=== PATIENT | male | born 1985 | race Caucasian/White ===

== ENCOUNTER 2021-03-03 05:43 | Inpatient (IN) | payer SELFPAY ==
[~2021-03-03] VITALS: Ht 177.8 cm; Wt 88.4 kg
[2021-03-03 05:45] VITALS: BP 129/76
[2021-03-03] MEDS ORDERED: MORPHINE SULFATE 4 MG/ML INJ. IV PRN (06:45)
[2021-03-03] MEDS ORDERED: ONDANSETRON PF 4 MG/2 ML VIAL. IVP PRN ×2 (06:45→07:15)
--- NOTE | 2021-03-03 06:57 | PDOC1 ---
History and Physical Date of Admission Date of Admission DATE: 03/03/21 TIME: 06:57 Identification/Chief Complaint Chief Complaint Inguinal hernia Source Source: Chart review, Patient History of Present Illness History of Present Illness Patient is a 35-year-old male with past medical history inguinal hernia, who presents as transfer from [facility] due to worsening right lower quadrant abdominal pain since yesterday. He reports associated scrotal swelling and nausea. He was previously followed by general surgery due to his history of inguinal hernia and was told that this could not be electively repaired due to lack of insurance. Upon arrival at [facility] physical exam findings are consistent with incarcerated right inguinal hernia. CT abdomen/pelvis showed moderate right-sided inguinal hernia containing loops of small bowel with dilated small bowel loops proximal to the likely incarcerated hernia. He received IV pain management and antiemetics. He was transferred to [facility] for general surgery consult and higher level of care. Past Medical History Past Medical History Right inguinal hernia, scoliosis, cataracts, alcohol abuse Past Surgical History Past Surgical History Right eye surgery Family History Family History Reviewed with patient but denies significant family history Social History Smoke: <1 pack per day (Chewing tobacco) ALCOHOL: heavy Drugs: Cocaine, Marijuana, Crystal meth Current Medications Current Medications Current Medications Morphine Sulfate (Morphine Sulfate) 2 mg PRN Q2HR PRN IV MODERATE PAIN 4-6; Start 03/03/21 at 06:45 Morphine Sulfate (Morphine Sulfate) 4 mg PRN Q2HR PRN IV SEVERE PAIN 7-10; Start 03/03/21 at 06:45 Ondansetron HCl (Zofran) 4 mg PRN Q6HRS PRN IVP NAUSEA/VOMITING 1ST CHOICE; Start 03/03/21 at 06:45 Sodium Chloride 1,000 ml @ 75 mls/hr [id number] IV ; Start 03/03/21 at 07:00 Allergies Allergies: Coded Allergies: No Known Drug Allergies (Unverified , 03/03/21) ROS Review of System GENERAL: No history of weight change, weakness or fevers. SKIN: No bruising, hair changes or rashes. EYES: No blurred, double or loss of vision. NOSE AND THROAT: No history of nosebleeds, hoarseness or sore throat. HEART: Denies chest pain, denies palpitations. LUNGS: Denies cough, hemoptysis, wheezing or shortness of breath. GASTROINTESTINAL: Lower abdominal pain, nausea. Denies diarrhea. GENITOURINARY: Scrotal pain and swelling. Denies dysuria, frequency, urgency, hematuria. NEUROLOGIC: Denies history of numbness, tingling, tremor or weakness. PSYCHIATRIC: Denies anxiety, denies depression. ENDOCRINE: No history of heat or cold intolerance, polyuria or polydipsia. EXTREMITIES: Denies muscle weakness, joint pain, pain on walking or stiffness. Physical Exam Physical Exam General: Alert, Oriented X3, Cooperative, moderate distress HEENT: PERRLA, EOMI Lungs: Clear to auscultation, Normal air movement Heart: RRR, no murmurs Cardiovascular: S1, S2 Abdomen: Normal bowel sounds, Soft, No tenderness Genitourinary: Enlarged and tender scrotum containing loops of small bowel, not reducible. Extremities: No clubbing, No cyanosis Skin: No rashes, No significant lesion Neuro: Normal speech, Normal tone, Sensation intact Psych/Mental Status: Mental status NL, Mood NL Vitals Vitals Vital Signs Date Time Temp Pulse Resp B/P (MAP) Pulse Ox O2 Delivery O2 Flow Rate FiO2 03/03/21 05:45 98.5 62 18 129/76 (93 100 Room Air 98.[address] Images [address] [address] IMAGING REPORT Signed PATIENT: YOUSUF STEVENS BACCOUNT: [id number] : 1985 LOCATION: ER AGE: 35 SEX: M EXAM STATUS: PRE ER ORD. PHYSICIAN: LETA MCCALLUM DO REASON: Rt ingu hernia, eval for incarceration/strangulation Omn 300 75cc PROCEDURE: CT ABD PELV W/ IV CONTRST ONLY Examination: CT of the abdomen pelvis with IV contrast HISTORY: History of inguinal hernia COMPARISON: 02/08/2021 TECHNIQUE: Axial CT images of the abdomen pelvis were performed with IV contrast. Coronal and sagittal reformats are performed. Exposure: One or more of the following individualized dose reduction techniques were utilized for this examination: 1. Automated exposure control 2. Adjustment of the mA and/or kV according to patient size 3. Use of iterative reconstruction technique. FINDINGS: The bibasilar lungs are clear. No evidence of free air identified in the abdomen. The liver, spleen, adrenals, pancreas grossly appears unremarkable. The gallbladder is mildly distended. Moderate fluid distended stomach with multiple dilated small bowel loops identified in the abdomen proximal to the moderate size inguinal hernia containing loops of small bowel within likely incarcerated hernia..There is fat stranding identified about the dilated small bowel loops. Feces and gas noted in the colon. IMPRESSION: 1. Moderate right-sided inguinal hernia containing loops of small bowel with dilated small bowel loops proximal to the hernia likely incarcerated hernia. VTE Prophylaxis Ordered VTE Prophylaxis Devices: No VTE Pharmacological Prophylaxi: Yes Assessment/Plan Assessment/Plan Incarcerated right inguinal hernia History of drug abuse History alcohol abuse Plan: Consultation for general surgery We will keep patient NPO for surgical intervention likely this morning IV pain medication and antiemetics EtOH withdrawal protocol FEN - NPO, then regular diet following surgery PPX - Heparin FULL CODE Dispo - inpatient for above Justifications for Admission Other Justification AMBER STRICKLAND MD Mar 03, 2021 06:57
[2021-03-03 07:00] VITALS: BP 133/90
[2021-03-03] MEDS ORDERED: ZOLPIDEM 5 MG TABLET. PO PRN (07:15)
[2021-03-03] MEDS ORDERED: cloNIDine HCL 0.1 MG TABLET PO PRN (07:15)
[2021-03-03] MEDS ORDERED: HALOPERIDOL LACTATE 5 MG/ML VIAL. IVP PRN (07:15)
[2021-03-03] MEDS ORDERED: MAGNESIUM HYDROXIDE 2,400 MG/30 ML ORAL.SUSP. PO PRN (07:15)
[2021-03-03] MEDS ORDERED: ACETAMINOPHEN 325 MG TABLET. PO PRN (07:15)
[2021-03-03] MEDS ORDERED: diphenhydrAMINE 50 MG/ML VIAL IVP PRN (07:15)
[2021-03-03] MEDS ORDERED: hydrALAZINE 20 MG/ML VIAL. IVP PRN (07:15)
[2021-03-03] MEDS ORDERED: CALCIUM CARBONATE 500 MG TAB.CHEW PO PRN (07:15)
[2021-03-03] MEDS ORDERED: MAG HYDROX/ALUMINUM HYD/SIMETH 30 ML ORAL.SUSP PO PRN (07:15)
[2021-03-03 08:20] LABS: BASO % 0 % (0-3); EOS % 0 % (0-3); HEMATOCRIT 46.7 % (39.0-53.0); LYMPH # 0.8 x10^3/uL (1.0-4.8); LYMPH % 7 % (24-48); MEAN CORPUSCULAR HEMOGLOBIN 30 pg (25-35); MEAN CORPUSCULAR HGB CONC 34 g/dL (31-37); MEAN CORPUSCULAR VOLUME 86 fL (79-100); MONO # 0.6 x10^3/uL (0.0-1.1); MONO % 5 % (0-9); NEUT # 10.2 x10^3/uL (1.8-7.7); NEUT % 88 % (31-73); PLATELET COUNT 352 x10^3/uL (140-400); RED BLOOD COUNT 5.42 x10^6/uL (4.30-5.70); WHITE BLOOD COUNT 11.6 x10^3/uL (4.0-11.0)
[2021-03-03 08:30] LABS: PROTHROMBIN TIME PATIENT 12.2 SEC (11.7-14.0)
[2021-03-03] MEDS: MORPHINE SULFATE 2 MG/ML INJ. IV PRN ×2 (08:30→17:18)
[2021-03-03] MEDS: IV NORMAL SALINE 1000ML BAG 1,000 ML IV SCH ×2 (08:30→20:41)
[2021-03-03 08:53] LABS: ALBUMIN 3.5 g/dL (3.4-5.0); CALCIUM 8.6 mg/dL (8.5-10.1); CREATININE 0.8 mg/dL (0.7-1.3); GFR 108.8; POTASSIUM 3.9 mmol/L (3.5-5.1); TOTAL BILIRUBIN 0.5 mg/dL (0.2-1.0); TOTAL PROTEIN 7.1 g/dL (6.4-8.2)
[2021-03-03] MEDS: MULTIVITAMIN with MINERAL TABLET. PO SCH (09:00)
[2021-03-03] MEDS: THIAMINE 100 MG TABLET. PO SCH (09:00)
[2021-03-03] MEDS: FOLIC ACID 1 MG TABLET. PO SCH (09:00)
[2021-03-03] MEDS ORDERED: LIDOCAINE 2% PF 5 ML VIAL. ONE ×2 (10:46→14:19)
[2021-03-03] MEDS ORDERED: PROPOFOL 10 MG/ML (20ML) VIAL. IV ONE ×2 (10:46→14:19)
[2021-03-03 11:00] VITALS: BP 126/81
--- NOTE | 2021-03-03 13:07 | PDOC2 ---
CONSULT Date of Consult Date of Consult DATE: 03/03/21 TIME: 13:04 Reason for Consult Reason for Consult: Incarcerated right inguinal hernia Referring Physician Referring Physician: Lakshmi Identification/Chief Complaint Chief Complaint Right groin pain Source Source: Patient History of Present Illness Reason for Visit: 35-year-old male with a known right inguinal hernia developed worsening pain over the weekend subsequently getting even worse went to the emergency department [place] a CT scan was performed which showed a incarcerated right inguinal hernia with small bowel with evidence of obstruction. Patient was sent to [facility] for surgical intervention. Patient was seen in his room feeling somewhat better although still having some pain no more nausea or vomiting Past Medical History Psych: Addictions Past Surgical History Past Surgical History: No pertinent history Family History Family History: No Significant Social History <1 pack per day (Chewing tobacco) ALCOHOL: heavy Drugs: Cocaine, Marijuana, Crystal meth Current Medications Current Medications Current Medications Morphine Sulfate (Morphine Sulfate) 2 mg PRN Q2HR PRN IV MODERATE PAIN 4-6 Last administered on 03/03/21at 08:30; Start 03/03/21 at 06:45 Morphine Sulfate (Morphine Sulfate) 4 mg PRN Q2HR PRN IV SEVERE PAIN 7-10; Start 03/03/21 at 06:45 Ondansetron HCl (Zofran) 4 mg PRN Q6HRS PRN IVP NAUSEA/VOMITING 1ST CHOICE; Start 03/03/21 at 06:45; Status Cancel Sodium Chloride 1,000 ml @ 75 mls/hr [id number] IV Last administered on 03/03/21at 08:30; Start 03/03/21 at 07:00 Multivitamins (Thera M Plus) 1 tab DAILY PO ; Start 03/03/21 at 09:00 Folic Acid (Folic Acid) 1 mg DAILY PO ; Start 03/03/21 at 09:00 Thiamine Mononitrate (Vitamin B-1) 100 mg DAILY PO ; Start 03/03/21 at 09:00 Lorazepam (Ativan Inj) 2 mg PRN Q1HR PRN IV For CIWA 8-14; Start 03/03/21 at 07:15 Lorazepam (Ativan Inj) 4 mg PRN Q1HR PRN IV For CIWA 15 or greater; Start 03/03/21 at 07:15 Haloperidol Lactate (Haldol Inj) 5 mg PRN Q4HRS PRN IVP Hallucinatns,Confusn,Delirium; Start 03/03/21 at 07:15 Diphenhydramine HCl (Benadryl) 25 mg PRN Q15MIN PRN IVP EPS symptoms 2'Haldol admin; Start 03/03/21 at 07:15 Clonidine HCl (Catapres) 0.1 mg PRN Q1HR PRN PO SBP > 180 or DBP > 100, MRX3; Start 03/03/21 at 07:15 Lorazepam (Ativan Inj) 2 mg PRN Q15MIN PRN IV SEE COMMENTS; Start 03/03/21 at 07:15; Status Cancel Lorazepam (Ativan Inj) 4 mg PRN Q15MIN PRN IV SEE COMMENTS; Start 03/03/21 at 07:15; Status Cancel Hydralazine HCl (Apresoline Inj) 10 mg PRN Q4HRS PRN IVP ELEVATED BP, SEE COMMENTS; Start 03/03/21 at 07:15 Ondansetron HCl (Zofran) 4 mg PRN Q6HRS PRN IVP NAUSEA/VOMITING; Start 03/03/21 at 07:15 Al Hydroxide/Mg Hydroxide (Mylanta Plus Xs) 30 ml PRN Q3HRS PRN PO HEARTBURN / GAS; Start 03/03/21 at 07:15 Calcium Carbonate/ Glycine (Tums) 500 mg PRN Q3HRS PRN PO UPSET STOMACH; Start 03/03/21 at 07:15 Zolpidem Tartrate (Ambien) 5 mg PRN QHS PRN PO INSOMNIA, MAY REPEAT IN 1HR; Start 03/03/21 at 07:15 Acetaminophen (Tylenol) 650 mg PRN Q6HRS PRN PO Headaches, Temp > 101.5F; Start 03/03/21 at 07:15 Magnesium Hydroxide (Milk Of Magnesia) 2,400 mg PRN Q12HR PRN PO CONSTIPATION; Start 03/03/21 at 07:15 Heparin Sodium (Porcine) (Heparin Sodium) 5,000 unit Q8HRS SQ ; Start 03/03/21 at 14:00 Propofol (Diprivan) 200 mg STK-MED ONCE IV ; Start 03/03/21 at 10:46; Stop 03/03/21 at 10:47; Status DC Lidocaine HCl (Lidocaine Pf 2% Vial) 5 ml STK-MED ONCE .ROUTE ; Start 03/03/21 at 10:46; Stop 03/03/21 at 10:47; Status DC Allergies Allergies: Coded Allergies: No Known Drug Allergies (Unverified , 03/03/21) ROS Gastrointestinal: Yes Nausea, Yes Vomiting, Yes Abdominal Pain Physical Exam General: Alert, Oriented X3, Cooperative, mild distress HEENT: Atraumatic, EOMI Lungs: Clear to auscultation, Normal air movement Heart: Regular rate, No murmurs Abdomen: Normal bowel sounds, Soft, Other (Examination right groin shows reduced hernia body rolling machine tender to palpation) Extremities: No edema Skin: No significant lesion Neuro: Normal speech Psych/Mental Status: Mental status NL Vitals VITALS Vital Signs Date Time Temp Pulse Resp B/P (MAP) Pulse Ox O2 Delivery O2 Flow Rate FiO2 03/03/21 11:00 98.1 75 18 126/81 (96) 97 Room Air 98.1 Labs Labs Laboratory Tests Test 03/03/21 08:05 White Blood Count 11.6 x10^3/uL (4.0-11.0) Red Blood Count 5.42 x10^6/uL (4.30-5.70) Hemoglobin 16.0 g/dL (13.0-17.5) Hematocrit 46.7 % (39.0-53.0) Mean Corpuscular Volume 86 fL (79-100) Mean Corpuscular Hemoglobin 30 pg (25-35) Mean Corpuscular Hemoglobin Concent 34 g/dL (31-37) Red Cell Distribution Width 14.0 % (11.5-14.5) Platelet Count 352 x10^3/uL (140-400) Neutrophils (%) (Auto) 88 % (31-73) Lymphocytes (%) (Auto) 7 % (24-48) Monocytes (%) (Auto) 5 % (0-9) Eosinophils (%) (Auto) 0 % (0-3) Basophils (%) (Auto) 0 % (0-3) Neutrophils # (Auto) 10.2 x10^3/uL (1.8-7.7) Lymphocytes # (Auto) 0.8 x10^3/uL (1.0-4.8) Monocytes # (Auto) 0.6 x10^3/uL (0.0-1.1) Eosinophils # (Auto) 0.0 x10^3/uL (0.0-0.7) Basophils # (Auto) 0.0 x10^3/uL (0.0-0.2) Prothrombin Time 12.2 SEC (11.7-14.0) Prothromb Time International Ratio 0.9 (0.8-1.1) Activated Partial Thromboplast Time 30 SEC (24-38) Sodium Level 137 mmol/L (136-145) Potassium Level 3.9 mmol/L (3.5-5.1) Chloride Level 103 mmol/L (98-107) Carbon Dioxide Level 27 mmol/L (21-32) Anion Gap 7 (6-14) Blood Urea Nitrogen 8 mg/dL (8-26) Creatinine 0.8 mg/dL (0.7-1.3) Estimated GFR (Cockcroft-Gault) 108.8 BUN/Creatinine Ratio 10 (6-20) Glucose Level 119 mg/dL (70-99) Calcium Level 8.6 mg/dL (8.5-10.1) Total Bilirubin 0.5 mg/dL (0.2-1.0) Aspartate Amino Transf (AST/SGOT) 15 U/L (15-37) Alanine Aminotransferase (ALT/SGPT) 16 U/L (16-63) Alkaline Phosphatase 83 U/L (46-116) Total Protein 7.1 g/dL (6.4-8.2) Albumin 3.5 g/dL (3.4-5.0) Albumin/Globulin Ratio 1.0 (1.0-1.7) Laboratory Tests Test 03/03/21 08:05 White Blood Count 11.6 x10^3/uL (4.0-11.0) Red Blood Count 5.42 x10^6/uL (4.30-5.70) Hemoglobin 16.0 g/dL (13.0-17.5) Hematocrit 46.7 % (39.0-53.0) Mean Corpuscular Volume 86 fL (79-100) Mean Corpuscular Hemoglobin 30 pg (25-35) Mean Corpuscular Hemoglobin Concent 34 g/dL (31-37) Red Cell Distribution Width 14.0 % (11.5-14.5) Platelet Count 352 x10^3/uL (140-400) Neutrophils (%) (Auto) 88 % (31-73) Lymphocytes (%) (Auto) 7 % (24-48) Monocytes (%) (Auto) 5 % (0-9) Eosinophils (%) (Auto) 0 % (0-3) Basophils (%) (Auto) 0 % (0-3) Neutrophils # (Auto) 10.2 x10^3/uL (1.8-7.7) Lymphocytes # (Auto) 0.8 x10^3/uL (1.0-4.8) Monocytes # (Auto) 0.6 x10^3/uL (0.0-1.1) Eosinophils # (Auto) 0.0 x10^3/uL (0.0-0.7) Basophils # (Auto) 0.0 x10^3/uL (0.0-0.2) Prothrombin Time 12.2 SEC (11.7-14.0) Prothromb Time International Ratio 0.9 (0.8-1.1) Activated Partial Thromboplast Time 30 SEC (24-38) Sodium Level 137 mmol/L (136-145) Potassium Level 3.9 mmol/L (3.5-5.1) Chloride Level 103 mmol/L (98-107) Carbon Dioxide Level 27 mmol/L (21-32) Anion Gap 7 (6-14) Blood Urea Nitrogen 8 mg/dL (8-26) Creatinine 0.8 mg/dL (0.7-1.3) Estimated GFR (Cockcroft-Gault) 108.8 BUN/Creatinine Ratio 10 (6-20) Glucose Level 119 mg/dL (70-99) Calcium Level 8.6 mg/dL (8.5-10.1) Total Bilirubin 0.5 mg/dL (0.2-1.0) Aspartate Amino Transf (AST/SGOT) 15 U/L (15-37) Alanine Aminotransferase (ALT/SGPT) 16 U/L (16-63) Alkaline Phosphatase 83 U/L (46-116) Total Protein 7.1 g/dL (6.4-8.2) Albumin 3.5 g/dL (3.4-5.0) Albumin/Globulin Ratio 1.0 (1.0-1.7) Assessment/Plan Assessment/Plan Right inguinal hernia currently reduced plan for hernia repair MANUEL CARBAJAL MD Mar 03, 2021 13:07
[2021-03-03] MEDS ORDERED: BUPIVACAINE-EPI 0.25%-1:200000 MPF 30 ML VIAL. ONE (13:55)
[2021-03-03] MEDS ORDERED: ONDANSETRON PF 4 MG/2 ML VIAL. ONE (14:19)
[2021-03-03] MEDS ORDERED: DEXAMETHASONE SOD PHOS 4 MG/ML VIAL ONE (14:19)
[2021-03-03] MEDS ORDERED: ROCURONIUM 50 MG/5 ML VIAL. ONE (14:20)
[2021-03-03] MEDS: HEPARIN for SUB-Q USE 5,000 UNIT/ML VIAL. SQ SCH ×2 (14:24→23:10)
[2021-03-03 15:00] VITALS: BP 116/77
[2021-03-03 19:00] VITALS: BP 142/89
[2021-03-03 23:00] VITALS: BP 143/84
[2021-03-04] VITALS (9 sets, daily range): BP systolic 110–139; BP diastolic 62–81
[2021-03-04 04:59] LABS: BASO % 1 % (0-3); EOS # 0.1 x10^3/uL (0.0-0.7); EOS % 2 % (0-3); HEMATOCRIT 39.3 % (39.0-53.0); HEMOGLOBIN 13.5 g/dL (13.0-17.5); LYMPH # 1.6 x10^3/uL (1.0-4.8); LYMPH % 27 % (24-48); MEAN CORPUSCULAR HEMOGLOBIN 30 pg (25-35); MEAN CORPUSCULAR HGB CONC 34 g/dL (31-37); MEAN CORPUSCULAR VOLUME 87 fL (79-100); MONO # 0.5 x10^3/uL (0.0-1.1); MONO % 9 % (0-9); NEUT # 3.5 x10^3/uL (1.8-7.7); NEUT % 61 % (31-73); PLATELET COUNT 289 x10^3/uL (140-400); RED BLOOD COUNT 4.51 x10^6/uL (4.30-5.70); RED CELL DISTRIBUTION WIDTH 13.4 % (11.5-14.5); WHITE BLOOD COUNT 5.8 x10^3/uL (4.0-11.0)
[2021-03-04 05:06] LABS: CALCIUM 8.1 mg/dL (8.5-10.1); CREATININE 0.8 mg/dL (0.7-1.3); GFR 108.8; POTASSIUM 3.3 mmol/L (3.5-5.1)
[2021-03-04] MEDS ORDERED: HYDROmorphone 2 MG/ML VIAL IVP PRN (06:00)
[2021-03-04] MEDS ORDERED: PROCHLORPERAZINE 10 MG/2 ML VIAL. IVP PRN (06:00)
[2021-03-04] MEDS ORDERED: fentaNYL PF VIAL 100 MCG/2 ML VIAL IVP PRN (06:00)
[2021-03-04] MEDS ORDERED: IV RINGERS,LACTATED 1000ML 1,000 ML IV SCH (06:00)
[2021-03-04] MEDS: HEPARIN for SUB-Q USE 5,000 UNIT/ML VIAL. SQ SCH ×3 (06:00→22:23)
[2021-03-04] MEDS: THIAMINE 100 MG TABLET. PO SCH (09:00)
[2021-03-04] MEDS: MULTIVITAMIN with MINERAL TABLET. PO SCH (09:00)
[2021-03-04] MEDS: FOLIC ACID 1 MG TABLET. PO SCH (09:00)
--- NOTE | 2021-03-04 11:45 | PDOC ---
[employer] PROGRESS NOTE Date of Service DOS: DATE: 03/04/21 TIME: 11:44 Chief Complaint Chief Complaint Incarcerated right inguinal hernia History of drug abuse History alcohol abuse Plan: Consultation for general surgery We will keep patient NPO for surgical intervention likely this morning IV pain medication and antiemetics EtOH withdrawal protocol FEN - NPO, then regular diet following surgery PPX - Heparin FULL CODE Dispo - inpatient for above History of Present Illness History of Present Illness Patient is a 35-year-old male with past medical history inguinal hernia, who presents as transfer from [facility] due to worsening right lower quadrant abdominal pain since yesterday. He reports associated scrotal swelling and nausea. He was previously followed by general surgery due to his history of inguinal hernia and was told that this could not be electively repaired due to lack of insurance. Upon arrival at [facility] physical exam findings are consistent with incarcerated right inguinal hernia. CT abdomen/pelvis showed moderate right-sided inguinal hernia containing loops of small bowel with dilated small bowel loops proximal to the likely incarcerated hernia. He received IV pain management and antiemetics. He was transferred to [facility] for general surgery consult and higher level of care. 03/04/2021: Patient seen and evaluated resting comfortably in bed. Pain well controlled at this time. Scheduled for surgery today. Vitals/I&O Vitals/I&O: Vital Signs Date Time Temp Pulse Resp B/P (MAP) Pulse Ox O2 Delivery O2 Flow Rate FiO2 03/04/21 08:28 Room Air 03/04/21 07:00 98.1 54 16 139/81 (100) 96 98.1 I & O 03/03/21 03/03/21 03/04/21 15:00 23:00 07:00 Intake Total 120 ml 0 ml Output Total 875 ml Balance -755 ml 0 ml Physical Exam General: Alert, Oriented X3, Cooperative, mild distress Heart: Regular rate, No murmurs Lungs: Clear Abdomen: Normal bowel sounds, Soft, Other (Examination right groin shows reduced hernia threading machine tender to palpation) Extremities: No edema Skin: No rashes, No significant lesion Labs Labs: Laboratory Tests Test 03/04/21 03:50 White Blood Count 5.8 x10^3/uL (4.0-11.0) Red Blood Count 4.51 x10^6/uL (4.30-5.70) Hemoglobin 13.5 g/dL (13.0-17.5) Hematocrit 39.3 % (39.0-53.0) Mean Corpuscular Volume 87 fL (79-100) Mean Corpuscular Hemoglobin 30 pg (25-35) Mean Corpuscular Hemoglobin Concent 34 g/dL (31-37) Red Cell Distribution Width 13.4 % (11.5-14.5) Platelet Count 289 x10^3/uL (140-400) Neutrophils (%) (Auto) 61 % (31-73) Lymphocytes (%) (Auto) 27 % (24-48) Monocytes (%) (Auto) 9 % (0-9) Eosinophils (%) (Auto) 2 % (0-3) Basophils (%) (Auto) 1 % (0-3) Neutrophils # (Auto) 3.5 x10^3/uL (1.8-7.7) Lymphocytes # (Auto) 1.6 x10^3/uL (1.0-4.8) Monocytes # (Auto) 0.5 x10^3/uL (0.0-1.1) Eosinophils # (Auto) 0.1 x10^3/uL (0.0-0.7) Basophils # (Auto) 0.0 x10^3/uL (0.0-0.2) Sodium Level 139 mmol/L (136-145) Potassium Level 3.3 mmol/L (3.5-5.1) Chloride Level 106 mmol/L (98-107) Carbon Dioxide Level 28 mmol/L (21-32) Anion Gap 5 (6-14) Blood Urea Nitrogen 6 mg/dL (8-26) Creatinine 0.8 mg/dL (0.7-1.3) Estimated GFR (Cockcroft-Gault) 108.8 Glucose Level 88 mg/dL (70-99) Calcium Level 8.1 mg/dL (8.5-10.1) Comment Review of Relevant I have reviewed the following items courtney (where applicable) has been applied. Medications: Current Medications Medications (Trade) Dose Ordered Sig/Amanda Route PRN Reason Start Time Stop Time Status Last Admin Dose Admin Heparin Sodium (Porcine) (Heparin Sodium) 5,000 unit Q8HRS SQ 03/03/21 14:00 03/03/21 23:10 Justifications for Admission General Conditions Other justification for admit: Incarcerated right inguinal hernia Other Justification AMBER STRICKLAND MD Mar 04, 2021 11:45
[2021-03-04] MEDS: MORPHINE SULFATE 2 MG/ML INJ. IV PRN (11:47)
--- NOTE | 2021-03-04 11:56 | NUR ---
Pt to surgery by bed.
[2021-03-04] MEDS ORDERED: fentaNYL PF VIAL 100 MCG/2 ML VIAL ONE ×3 (12:15→16:02)
[2021-03-04] MEDS: fentaNYL PF VIAL 100 MCG/2 ML VIAL IVP PRN ×4 (12:18→16:11)
[2021-03-04] MEDS ORDERED: HYDROmorphone 2 MG/ML VIAL ONE (12:20)
[2021-03-04] MEDS ORDERED: ONDANSETRON PF 4 MG/2 ML VIAL. ONE (12:20)
[2021-03-04] MEDS ORDERED: BUPIVACAINE-EPI 0.5% 30 ML VIAL KIT. ONE (12:20)
[2021-03-04] MEDS ORDERED: MIDAZOLAM HCL/PF 2 MG/2 ML VIAL. ONE (12:20)
[2021-03-04] MEDS ORDERED: SEVOFLURANE 61 TO 120 MINUTES. IH ONE ×2 (12:20→13:00)
[2021-03-04] MEDS ORDERED: DEXAMETHASONE SOD PHOS 20 MG/5 ML VIAL. ONE (12:20)
[2021-03-04] MEDS ORDERED: ROCURONIUM 50 MG/5 ML VIAL. ONE (12:21)
--- NOTE | 2021-03-04 13:56 | PDOC ---
SURGICAL PROGRESS NOTE DATE: 03/04/21 TIME: 13:54 Subjective Pre-Op Note 35 yo M with incarcerated RIH, now reduced but still with pain. TO OR for right inguinal hernia repair with mesh plug R/R/B/A d/w pt. Risks, including, but not limited to: bleeding, infection, damage to surrounding structures, risk of anesthesia, risk of recurrence. He appears to understand, his questions are answered and he elects to proceed. Vital Signs Vital Signs Date Time Temp Pulse Resp B/P (MAP) Pulse Ox O2 Delivery O2 Flow Rate FiO2 03/04/21 13:16 15 96 Room Air 03/04/21 12:06 98.1 60 129/87 98.1 I&O Intake and Output 03/04/21 07:00 Intake Total 120 ml Output Total 875 ml Balance -755 ml Intake Oral 120 ml Output Urine Total 875 ml Labs Laboratory Tests Test 03/03/21 08:05 03/04/21 03:50 White Blood Count 11.6 x10^3/uL (4.0-11.0) 5.8 x10^3/uL (4.0-11.0) Red Blood Count 5.42 x10^6/uL (4.30-5.70) 4.51 x10^6/uL (4.30-5.70) Hemoglobin 16.0 g/dL (13.0-17.5) 13.5 g/dL (13.0-17.5) Hematocrit 46.7 % (39.0-53.0) 39.3 % (39.0-53.0) Mean Corpuscular Volume 86 fL (79-100) 87 fL (79-100) Mean Corpuscular Hemoglobin 30 pg (25-35) 30 pg (25-35) Mean Corpuscular Hemoglobin Concent 34 g/dL (31-37) 34 g/dL (31-37) Red Cell Distribution Width 14.0 % (11.5-14.5) 13.4 % (11.5-14.5) Platelet Count 352 x10^3/uL (140-400) 289 x10^3/uL (140-400) Neutrophils (%) (Auto) 88 % (31-73) 61 % (31-73) Lymphocytes (%) (Auto) 7 % (24-48) 27 % (24-48) Monocytes (%) (Auto) 5 % (0-9) 9 % (0-9) Eosinophils (%) (Auto) 0 % (0-3) 2 % (0-3) Basophils (%) (Auto) 0 % (0-3) 1 % (0-3) Neutrophils # (Auto) 10.2 x10^3/uL (1.8-7.7) 3.5 x10^3/uL (1.8-7.7) Lymphocytes # (Auto) 0.8 x10^3/uL (1.0-4.8) 1.6 x10^3/uL (1.0-4.8) Monocytes # (Auto) 0.6 x10^3/uL (0.0-1.1) 0.5 x10^3/uL (0.0-1.1) Eosinophils # (Auto) 0.0 x10^3/uL (0.0-0.7) 0.1 x10^3/uL (0.0-0.7) Basophils # (Auto) 0.0 x10^3/uL (0.0-0.2) 0.0 x10^3/uL (0.0-0.2) Prothrombin Time 12.2 SEC (11.7-14.0) Prothromb Time International Ratio 0.9 (0.8-1.1) Activated Partial Thromboplast Time 30 SEC (24-38) Sodium Level 137 mmol/L (136-145) 139 mmol/L (136-145) Potassium Level 3.9 mmol/L (3.5-5.1) 3.3 mmol/L (3.5-5.1) Chloride Level 103 mmol/L (98-107) 106 mmol/L (98-107) Carbon Dioxide Level 27 mmol/L (21-32) 28 mmol/L (21-32) Anion Gap 7 (6-14) 5 (6-14) Blood Urea Nitrogen 8 mg/dL (8-26) 6 mg/dL (8-26) Creatinine 0.8 mg/dL (0.7-1.3) 0.8 mg/dL (0.7-1.3) Estimated GFR (Cockcroft-Gault) 108.8 108.8 BUN/Creatinine Ratio 10 (6-20) Glucose Level 119 mg/dL (70-99) 88 mg/dL (70-99) Calcium Level 8.6 mg/dL (8.5-10.1) 8.1 mg/dL (8.5-10.1) Total Bilirubin 0.5 mg/dL (0.2-1.0) Aspartate Amino Transf (AST/SGOT) 15 U/L (15-37) Alanine Aminotransferase (ALT/SGPT) 16 U/L (16-63) Alkaline Phosphatase 83 U/L (46-116) Total Protein 7.1 g/dL (6.4-8.2) Albumin 3.5 g/dL (3.4-5.0) Albumin/Globulin Ratio 1.0 (1.0-1.7) Laboratory Tests Test 03/04/21 03:50 White Blood Count 5.8 x10^3/uL (4.0-11.0) Red Blood Count 4.51 x10^6/uL (4.30-5.70) Hemoglobin 13.5 g/dL (13.0-17.5) Hematocrit 39.3 % (39.0-53.0) Mean Corpuscular Volume 87 fL (79-100) Mean Corpuscular Hemoglobin 30 pg (25-35) Mean Corpuscular Hemoglobin Concent 34 g/dL (31-37) Red Cell Distribution Width 13.4 % (11.5-14.5) Platelet Count 289 x10^3/uL (140-400) Neutrophils (%) (Auto) 61 % (31-73) Lymphocytes (%) (Auto) 27 % (24-48) Monocytes (%) (Auto) 9 % (0-9) Eosinophils (%) (Auto) 2 % (0-3) Basophils (%) (Auto) 1 % (0-3) Neutrophils # (Auto) 3.5 x10^3/uL (1.8-7.7) Lymphocytes # (Auto) 1.6 x10^3/uL (1.0-4.8) Monocytes # (Auto) 0.5 x10^3/uL (0.0-1.1) Eosinophils # (Auto) 0.1 x10^3/uL (0.0-0.7) Basophils # (Auto) 0.0 x10^3/uL (0.0-0.2) Sodium Level 139 mmol/L (136-145) Potassium Level 3.3 mmol/L (3.5-5.1) Chloride Level 106 mmol/L (98-107) Carbon Dioxide Level 28 mmol/L (21-32) Anion Gap 5 (6-14) Blood Urea Nitrogen 6 mg/dL (8-26) Creatinine 0.8 mg/dL (0.7-1.3) Estimated GFR (Cockcroft-Gault) 108.8 Glucose Level 88 mg/dL (70-99) Calcium Level 8.1 mg/dL (8.5-10.1) Justicifation of Admission Dx: Justifications for Admission: Justification of Admission Dx: Yes (incarcerated hernia) MAYANK SONI MD Mar 04, 2021 13:56
[2021-03-04] MEDS ORDERED: GLYCOPYRROLATE 1 MG/5 ML VIAL. ONE (14:28)
[2021-03-04] MEDS ORDERED: MORPHINE SULFATE 2 MG/ML INJ. ONE (15:50)
[2021-03-04] MEDS: MORPHINE SULFATE 2 MG/ML INJ. IVP PRN ×2 (15:51→16:00)
[2021-03-04] MEDS ORDERED: PROCHLORPERAZINE 10 MG/2 ML VIAL. ONE (16:12)
--- NOTE | 2021-03-04 16:41 | PDOC4 ---
OPERATIVE NOTE Date: Date: Mar 04, 2021 Pre-Op Diagnosis: Incarcerated right inguinal hernia Post-Op Diagnosis: same Procedure Performed: right inguinal hernia repair with phasix mesh plug and onlay Surgeon: Abelardo Soni Anesthesia Type: GETA plus local Blood Loss: 50 Specimans Obtained: none Findings: chronic inflammation of right groin, poor tissues, large hernia with no viscera, hydrocele Complications: none Operative Note: After obtaining informed consent, patient was taken to OR, induced under GETA and prepped in the usual fashion. Transverse incision was made in right groin. Incision was carried down to external oblique. External ring was dilated and damage and not significantly open. Hernia sac/spermatic cord was dissected out. This was severely difficult, given chronic inflammation and hernia sac was essentially fused to spermatic cord. Hydrocele opened and drained and repaired with 3 0 vicryl. Hernia sac opened and no viscera identified. A high ligation was performed with 3 0 vicryl, but the sac was not completely taken off spermatic cord (identified by palpation of vas deferens), secondary to being fused. XL mesh plug placed in indirect defect and tacked in place with 0 vicryl. Internal ring reapproximated with mesh onlay around spermatic cord and secured with 0 vicryl. External ring tightened with 0 vicryl. Skin repaired with 3 0 vicryl and 4 0 monocryl. Dressing placed. Patient tolerated procedure well and sent to PACU in stable condition. All counts correct. MAYANK SONI MD Mar 04, 2021 16:41
[2021-03-04] MEDS ORDERED: NALOXONE 0.4 MG/ML VIAL. IV PRN (16:45)
[2021-03-04] MEDS: DOCUSATE SODIUM 100 MG CAPSULE. PO SCH (20:03)
[2021-03-04] MEDS: HYDROcodone/APAP 5/325MG 1 TAB TABLET PO PRN (20:04)
[2021-03-04] MEDS: IV NORMAL SALINE 1000ML BAG 1,000 ML IV SCH ×2 (23:00→23:52)
[2021-03-05 03:00] VITALS: BP 112/72
[2021-03-05] MEDS: HYDROcodone/APAP 5/325MG 1 TAB TABLET PO PRN ×4 (03:46→17:09)
[2021-03-05] MEDS: HEPARIN for SUB-Q USE 5,000 UNIT/ML VIAL. SQ SCH ×2 (06:22→14:03)
[2021-03-05 07:00] VITALS: BP 112/73
--- NOTE | 2021-03-05 08:00 | NUR ---
Tolerated breakfast without any n/v. Cont. monitor.
[2021-03-05] MEDS: FOLIC ACID 1 MG TABLET. PO SCH (08:07)
[2021-03-05] MEDS: MULTIVITAMIN with MINERAL TABLET. PO SCH (08:07)
[2021-03-05] MEDS: THIAMINE 100 MG TABLET. PO SCH (08:07)
[2021-03-05] MEDS: DOCUSATE SODIUM 100 MG CAPSULE. PO SCH (08:07)
--- NOTE | 2021-03-05 10:06 | PDOC ---
SURGICAL PROGRESS NOTE DATE: 03/05/21 TIME: 10:04 Subjective incision sore eating urinating ambulating Vital Signs Vital Signs Date Time Temp Pulse Resp B/P (MAP) Pulse Ox O2 Delivery O2 Flow Rate FiO2 03/05/21 08:39 Room Air 03/05/21 07:00 99.9 72 18 112/73 (86) 94 99.9 03/04/21 16:04 6.0 I&O Intake and Output 03/05/21 07:00 Intake Total 2060 ml Output Total 300 ml Balance 1760 ml Intake Oral 560 ml IV Total 1500 ml Output Urine Total 250 ml Estimated Blood Loss 50 ml # Voids 1 General: Alert, Oriented X3, Cooperative Skin: Other (mild swelling groin site ) Labs Laboratory Tests Test 03/04/21 03:50 White Blood Count 5.8 x10^3/uL (4.0-11.0) Red Blood Count 4.51 x10^6/uL (4.30-5.70) Hemoglobin 13.5 g/dL (13.0-17.5) Hematocrit 39.3 % (39.0-53.0) Mean Corpuscular Volume 87 fL (79-100) Mean Corpuscular Hemoglobin 30 pg (25-35) Mean Corpuscular Hemoglobin Concent 34 g/dL (31-37) Red Cell Distribution Width 13.4 % (11.5-14.5) Platelet Count 289 x10^3/uL (140-400) Neutrophils (%) (Auto) 61 % (31-73) Lymphocytes (%) (Auto) 27 % (24-48) Monocytes (%) (Auto) 9 % (0-9) Eosinophils (%) (Auto) 2 % (0-3) Basophils (%) (Auto) 1 % (0-3) Neutrophils # (Auto) 3.5 x10^3/uL (1.8-7.7) Lymphocytes # (Auto) 1.6 x10^3/uL (1.0-4.8) Monocytes # (Auto) 0.5 x10^3/uL (0.0-1.1) Eosinophils # (Auto) 0.1 x10^3/uL (0.0-0.7) Basophils # (Auto) 0.0 x10^3/uL (0.0-0.2) Sodium Level 139 mmol/L (136-145) Potassium Level 3.3 mmol/L (3.5-5.1) Chloride Level 106 mmol/L (98-107) Carbon Dioxide Level 28 mmol/L (21-32) Anion Gap 5 (6-14) Blood Urea Nitrogen 6 mg/dL (8-26) Creatinine 0.8 mg/dL (0.7-1.3) Estimated GFR (Cockcroft-Gault) 108.8 Glucose Level 88 mg/dL (70-99) Calcium Level 8.1 mg/dL (8.5-10.1) Problem List s/p RIH stable surgically no lifting x 4 week Justicifation of Admission Dx: Justifications for Admission: Justification of Admission Dx: Yes (incarcerated hernia) KAE BAILEY DIAMOND SIZER Mar 05, 2021 10:05
[2021-03-05 11:30] VITALS: BP 125/63
[2021-03-05] MEDS: IV NORMAL SALINE 1000ML BAG 1,000 ML IV SCH ×2 (12:20→16:45)
[2021-03-05 15:01] VITALS: BP 130/73
--- NOTE | 2021-03-05 15:14 | PDOC ---
[employer] PROGRESS NOTE Date of Service DOS: DATE: 03/05/21 TIME: 15:12 Chief Complaint Chief Complaint Incarcerated right inguinal hernia History of drug abuse History alcohol abuse Plan: Consultation for general surgery We will keep patient NPO for surgical intervention likely this morning IV pain medication and antiemetics EtOH withdrawal protocol FEN - NPO, then regular diet following surgery PPX - Heparin FULL CODE Dispo - inpatient for above History of Present Illness History of Present Illness Patient is a 35-year-old male with past medical history inguinal hernia, who presents as transfer from [facility] due to worsening right lower quadrant abdominal pain since yesterday. He reports associated scrotal swelling and nausea. He was previously followed by general surgery due to his history of inguinal hernia and was told that this could not be electively repaired due to lack of insurance. Upon arrival at [facility] physical exam findings are consistent with incarcerated right inguinal hernia. CT abdomen/pelvis showed moderate right-sided inguinal hernia containing loops of small bowel with dilated small bowel loops proximal to the likely incarcerated hernia. He received IV pain management and antiemetics. He was transferred to [facility] for general surgery consult and higher level of care. 03/04/2021: Patient seen and evaluated resting comfortably in bed. Pain well controlled at this time. Scheduled for surgery today. 03/05/2021: Patient seen and evaluated POD #1, s/p right inguinal hernia repair with mesh plug and onlay. Only complains of pain with movement. Tolerating diet, urinating. Requesting to discharge today. Will discharge home with pain medications and surgical follow-up. No heavy lifting for 2 weeks. Greater than 30 minutes was spent managing the discharge of this patient. Vitals/I&O Vitals/I&O: Vital Signs Date Time Temp Pulse Resp B/P (MAP) Pulse Ox O2 Delivery O2 Flow Rate FiO2 03/05/21 15:01 98.7 72 18 130/73 (92) 96 Room Air 98.7 03/04/21 16:04 6.0 I & O 03/04/21 03/04/21 03/05/21 15:00 23:00 07:00 Intake Total 50 ml 1450 ml 560 ml Output Total 300 ml Balance 50 ml 1150 ml 560 ml Physical Exam General: Alert, Oriented X3, Cooperative Heart: Regular rate, No murmurs Lungs: Clear Abdomen: Normal bowel sounds, Soft, Other (Examination right groin shows reduced hernia continuous still operator to palpation) Extremities: No edema Skin: Other (mild swelling groin site ) Comment Review of Relevant I have reviewed the following items courtney (where applicable) has been applied. Medications: Current Medications Medications (Trade) Dose Ordered Sig/Amanda Route PRN Reason Start Time Stop Time Status Last Admin Dose Admin Cefazolin Sodium/ Dextrose 50 ml @ 100 mls/hr 1X PREOP PRN IV PRIOR TO PROCEDURE 03/05/21 06:00 03/05/21 18:00 03/04/21 13:54 Acetaminophen/ Hydrocodone Bitart (Lortab 5/325) 1 tab PRN Q4HRS PRN PO MILD PAIN 1-3 03/04/21 16:45 03/05/21 13:27 Docusate Sodium (Colace) 100 mg BID PO 03/04/21 21:00 03/05/21 08:07 Justifications for Admission General Conditions Other justification for admit: Incarcerated right inguinal hernia Other Justification AMBER STRICKLAND MD Mar 05, 2021 15:14
--- NOTE | 2021-03-05 15:43 | PDOC3 ---
Discharge Summary Visit Information Date of Admission: Mar 03, 2021 Date of Discharge: Mar 05, 2021 Brief Hospital Course Allergies Allergies Coded Allergies Type Severity Reaction Last Updated Verified No Known Drug Allergies 03/03/21 No Vital Signs Vital Signs Date Time Temp Pulse Resp B/P (MAP) Pulse Ox O2 Delivery O2 Flow Rate FiO2 03/05/21 15:01 98.7 72 18 130/73 (92) 96 Room Air 98.7 03/04/21 16:04 6.0 Lab Results Laboratory Tests Test 03/04/21 03:50 White Blood Count 5.8 x10^3/uL (4.0-11.0) Red Blood Count 4.51 x10^6/uL (4.30-5.70) Hemoglobin 13.5 g/dL (13.0-17.5) Hematocrit 39.3 % (39.0-53.0) Mean Corpuscular Volume 87 fL (79-100) Mean Corpuscular Hemoglobin 30 pg (25-35) Mean Corpuscular Hemoglobin Concent 34 g/dL (31-37) Red Cell Distribution Width 13.4 % (11.5-14.5) Platelet Count 289 x10^3/uL (140-400) Neutrophils (%) (Auto) 61 % (31-73) Lymphocytes (%) (Auto) 27 % (24-48) Monocytes (%) (Auto) 9 % (0-9) Eosinophils (%) (Auto) 2 % (0-3) Basophils (%) (Auto) 1 % (0-3) Neutrophils # (Auto) 3.5 x10^3/uL (1.8-7.7) Lymphocytes # (Auto) 1.6 x10^3/uL (1.0-4.8) Monocytes # (Auto) 0.5 x10^3/uL (0.0-1.1) Eosinophils # (Auto) 0.1 x10^3/uL (0.0-0.7) Basophils # (Auto) 0.0 x10^3/uL (0.0-0.2) Sodium Level 139 mmol/L (136-145) Potassium Level 3.3 mmol/L (3.5-5.1) Chloride Level 106 mmol/L (98-107) Carbon Dioxide Level 28 mmol/L (21-32) Anion Gap 5 (6-14) Blood Urea Nitrogen 6 mg/dL (8-26) Creatinine 0.8 mg/dL (0.7-1.3) Estimated GFR (Cockcroft-Gault) 108.8 Glucose Level 88 mg/dL (70-99) Calcium Level 8.1 mg/dL (8.5-10.1) Brief Hospital Course Mr. Read is a 35 old male who presented with incarcerated right inguinal hernia. Consultation was placed to general surgery. He had right inguinal hernia repair with mesh plug and onlay. Postoperatively he tolerated diet and was able to urinate well. He was recommended no heavy lifting for the next 2 weeks. Recommended follow-up with general surgery at some point within the next 2 weeks as well. Will discharge home with short course of pain medication. Discharge Information Condition at Discharge: Improved Disposition/Orders: D/C to Home Justicifation of Admission Dx: Justifications for Admission: Justification of Admission Dx: Yes (incarcerated hernia) AMBER STRICKLAND MD Mar 05, 2021 15:43
[2021-03-05] MEDS ORDERED: HYDR-2761 PO (15:47)
--- NOTE | 2021-03-05 17:21 | NUR ---
Discharged home with family member. Discharged with instructions and follow up orders. prescriptions via electronics to pharmacy.
== END 2021-03-05 17:21 | disposition home or self-care (01) | DRG 352 ==
LOC: 4 NORTH 05:43 → EDSTATUS 17:00
PROVIDERS: ADMIT Internal Medicine; ATTEND Internal Medicine
PROC: 0YU50JZ Supplement Right Inguinal Region with Synthetic Substitute, Open Approach (ICD-10-PCS; principal; 2021-03-04 13:00)
DX: K40.30 Unilateral inguinal hernia, with obstruction, without gangrene, not specified as recurrent (principal); F17.210 Nicotine dependence, cigarettes, uncomplicated; M41.9 Scoliosis, unspecified; F10.10 Alcohol abuse, uncomplicated
CPT/HCPCS: 36415; 80048; 80053; 85025; 85610; 85730; A4213; A4364; A4452; A4930; C1781; J0690; J0780; J1100; J1170; J1644; J2250; J2270; J2405; J2704; J3010; J3490; J7030; J7120; G0378

== ENCOUNTER 2021-03-09 22:34 | Emergency (ER) | payer SELFPAY ==
[~2021-03-09] VITALS: Ht 177.8 cm; Wt 76.8 kg
[~2021-03-09 22:34] MED LIST: HYDR-2761 PO
[2021-03-09] MEDS ORDERED: MORPHINE SULFATE 4 MG/ML INJ. IVP ONE (23:00)
[2021-03-09 23:13] LABS: BASO # 0.1 x10^3/uL (0.0-0.2); BASO % 1 % (0-3); EOS # 0.3 x10^3/uL (0.0-0.7); EOS % 2 % (0-3); HEMATOCRIT 38.5 % (39.0-53.0); LYMPH # 1.8 x10^3/uL (1.0-4.8); LYMPH % 16 % (24-48); MEAN CORPUSCULAR HEMOGLOBIN 29 pg (25-35); MEAN CORPUSCULAR HGB CONC 34 g/dL (31-37); MEAN CORPUSCULAR VOLUME 85 fL (79-100); MONO # 1.4 x10^3/uL (0.0-1.1); MONO % 12 % (0-9); NEUT # 7.8 x10^3/uL (1.8-7.7); NEUT % 69 % (31-73); PLATELET COUNT 410 x10^3/uL (140-400); RED BLOOD COUNT 4.51 x10^6/uL (4.30-5.70); RED CELL DISTRIBUTION WIDTH 13.5 % (11.5-14.5); WHITE BLOOD COUNT 11.4 x10^3/uL (4.0-11.0)
[2021-03-09 23:24] LABS: CALCIUM 8.5 mg/dL (8.5-10.1); GFR 84.1; POTASSIUM 3.8 mmol/L (3.5-5.1)
[2021-03-09 23:30] LABS: ALBUMIN 3.1 g/dL (3.4-5.0); ALBUMIN/GLOBULIN RATIO 0.8 (1.0-1.7); TOTAL BILIRUBIN 0.3 mg/dL (0.2-1.0); TOTAL PROTEIN 6.9 g/dL (6.4-8.2)
[2021-03-09] MEDS ORDERED: IOHEXOL 300 MG/ML 100ML VIAL. IV ONE (23:30)
[2021-03-09] MEDS ORDERED: CONTRAST GIVEN. MC PRN (23:30)
--- NOTE | 2021-03-09 23:56 | RAD ---
PQRS Compliance Statement: One or more of the following individualized dose reduction techniques were utilized for this examinat ion: 1. Automated exposure control 2. Adjustment of the mA and/or kV according to patient size 3. Use of iterative reconstruction technique CT abdomen/pelvis with contrast 03/09/2021 11:22 PM INDICATION: Right groin pain. Inguinal hernia. Recent surgery. COMPARISON: CT abdomen/pelvis 03/03/2021 TECHNIQUE: Multiple axial CT images of the abdomen and pelvis were obtained after the intravenous adm inistration of 75 mL Omnipaque 300. Coronal and sagittal reformats are provided. FINDINGS: Visualized portions of the lung bases are clear. Heart size is within normal limits. No suspicious hepatic masses are identified. Liver is homogeneous in enhancement. Spleen, bilateral a drenal glands, and pancreas are normal in appearance. Gallbladder is present without adjacent inflamm atory changes. The abdominal aorta is normal in course and caliber. There are no pathologically enlarged lymph nodes in the abdomen and pelvis. There is no abdominal free fluid. There is no free intraperitoneal air. The kidneys enhance symmetrically. There is no suspicious renal mass. There is no hydronephrosis. The re are no suspected calculi within the kidneys, ureters or urinary bladder. Small and large bowel are normal in caliber. There is no evidence for bowel obstruction. There are no pericolonic inflammatory changes. A normal, nondilated appendix is visualized without adjacent infla mmatory changes. There is improved appearance of small bowel obstruction. Interval reduction of right inguinal hernia. However, there is fluid and debris identified within the right inguinal canal. Ther e is a gas containing collection proximal to the right inguinal canal measuring 2.6 x 2.9 x 4.1 cm (s eries 2, image 73). No suspicious osseous abnormality is identified. Urinary bladder is within normal limits given degree of distention. Prostate and seminal vesicles appear normal. IMPRESSION: Post surgical changes are identified from right inguinal hernia repair with interval reduction of her rosa isela and improved small bowel obstruction as compared to prior CT from 03/03/2021. There is an intra-a bdominal fluid collection containing gas proximal to the inguinal ring within the lower pelvis measur ing 2.6 x 2.9 x 4.1 cm. Findings may be postsurgical, although correlation with signs and symptoms of developing abscess is recommended. There is extensive fluid and debris identified at the right inguinal canal extending into the right s crotum. Electronically signed by: Sarah Zuñiga MD (03/09/2021 11:53 PM) [facility]
[2021-03-10] MEDS ORDERED: MORPHINE SULFATE 4 MG/ML INJ. IVP ONE (00:30)
[2021-03-10] MEDS ORDERED: KETOROLAC 30 MG/ML VIAL. IVP ONE (00:30)
--- NOTE | 2021-03-10 00:33 | PHYS DOC ---
Past Medical History Past Surgical History: Other Additional Past Surgical Histo: EYE SURGERY Smoking Status: Never Smoker Alcohol Use: Occasionally General Adult EDM: Chief Complaint: POST-OP PROBLEM HPI: HPI: Patient is a 35 year old male who presents the ED today complaining of 10 out of 10 right groin pain, symptoms began this evening after he woke up from a nap. He is also complaining of moderate swelling to the right groin region. He states he had hernia repair on last week by Dr. Stein, and he is concerned his inguinal hernia popped out again. Patient denies any trauma. Denies any coughing or lifting anything heavy or doing any strenuous activities. Denies any fever or trouble urinating. He states the hydrocodone to give him helps with pain. Patient states the pain is worse on touching his right groin region. Review of Systems: Review of Systems: Constitutional: Denies fever or chills. [] Eyes: Denies change in visual acuity. [] HENT: Denies nasal congestion or sore throat. [] Respiratory: Denies cough or shortness of breath. [] Cardiovascular: Denies chest pain or edema. [] GI: Denies abdominal pain, nausea, vomiting, bloody stools or diarrhea. [] Male -reports right groin pain : Denies dysuria. [] Musculoskeletal: Denies back pain or joint pain. [] Integument: Denies rash. [] Neurologic: Denies headache, focal weakness or sensory changes. [] Psychiatric: Denies depression or anxiety. [] Heart Score: C/O Chest Pain: N/A Risk Factors: Risk Factors: DM, Current or recent (<one month) smoker, HTN, HLP, family history of CAD, obesity. Risk Scores: Score 0 - 3: 2.5% MACE over next 6 weeks - Discharge Home Score 4 - 6: 20.3% MACE over next 6 weeks - Admit for Clinical Observation Score 7 - 10: 72.7% MACE over next 6 weeks - Early Invasive Strategies Current Medications: Current Medications Medications (Trade) Dose Ordered Sig/Amanda Start Time Stop Time Status Last Admin Dose Admin Info (CONTRAST GIVEN -- Rx MONITORING) 1 each PRN DAILY PRN 03/09/21 23:30 03/11/21 23:29 Iohexol (Omnipaque 300 Mg/ml) 75 ml 1X ONCE 03/09/21 23:30 03/09/21 23:31 DC 03/09/21 23:35 75 ML Ketorolac Tromethamine (Toradol 30mg Vial) 30 mg 1X ONCE 03/10/21 00:30 03/10/21 00:31 Morphine Sulfate (Morphine Sulfate) 4 mg 1X ONCE 03/10/21 00:30 03/10/21 00:31 UNV Allergies: Allergies: Allergies Coded Allergies Type Severity Reaction Last Updated Verified No Known Drug Allergies 03/03/21 No Physical Exam: PE: Constitutional: Well developed, well nourished, no acute distress, non-toxic appearance. [] HENT: Normocephalic, atraumatic, bilateral external ears normal, oropharynx moist, no oral exudates, nose normal. [] Eyes: PERRLA, EOMI, conjunctiva normal, no discharge. [] Neck: Normal range of motion, no tenderness, supple, no stridor. [] Cardiovascular:Heart rate regular rhythm, no murmur [] Lungs & Thorax: Bilateral breath sounds clear to auscultation [] Abdomen: Bowel sounds normal, soft, no tenderness, no masses, no pulsatile masses. 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 There is moderate swelling on the right groin into the testicles. There is no erythema. The area is tender on the right groin. Skin: Warm, dry, no erythema, no rash. [] Back: No tenderness, no CVA tenderness. [] Extremities: No tenderness, no cyanosis, no clubbing, ROM intact, no edema. [] Neurologic: Alert and oriented X 3, normal motor function, normal sensory f unction, no focal deficits noted. [] Psychologic: Affect normal, judgement normal, mood normal. [] Current Patient Data: Labs: Laboratory Tests Test 03/09/21 23:05 White Blood Count 11.4 x10^3/uL (4.0-11.0) H Red Blood Count 4.51 x10^6/uL (4.30-5.70) Hemoglobin 13.0 g/dL (13.0-17.5) Hematocrit 38.5 % (39.0-53.0) L Mean Corpuscular Volume 85 fL (79-100) Mean Corpuscular Hemoglobin 29 pg (25-35) Mean Corpuscular Hemoglobin Concent 34 g/dL (31-37) Red Cell Distribution Width 13.5 % (11.5-14.5) Platelet Count 410 x10^3/uL (140-400) H Neutrophils (%) (Auto) 69 % (31-73) Lymphocytes (%) (Auto) 16 % (24-48) L Monocytes (%) (Auto) 12 % (0-9) H Eosinophils (%) (Auto) 2 % (0-3) Basophils (%) (Auto) 1 % (0-3) Neutrophils # (Auto) 7.8 x10^3/uL (1.8-7.7) H Lymphocytes # (Auto) 1.8 x10^3/uL (1.0-4.8) Monocytes # (Auto) 1.4 x10^3/uL (0.0-1.1) H Eosinophils # (Auto) 0.3 x10^3/uL (0.0-0.7) Basophils # (Auto) 0.1 x10^3/uL (0.0-0.2) Sodium Level 139 mmol/L (136-145) Potassium Level 3.8 mmol/L (3.5-5.1) Chloride Level 104 mmol/L (98-107) Carbon Dioxide Level 27 mmol/L (21-32) Anion Gap 8 (6-14) Blood Urea Nitrogen 19 mg/dL (8-26) Creatinine 1.0 mg/dL (0.7-1.3) Estimated GFR (Cockcroft-Gault) 84.1 BUN/Creatinine Ratio 19 (6-20) Glucose Level 112 mg/dL (70-99) H Calcium Level 8.5 mg/dL (8.5-10.1) Total Bilirubin 0.3 mg/dL (0.2-1.0) Aspartate Amino Transferase (AST) 22 U/L (15-37) Alanine Aminotransferase (ALT) 47 U/L (16-63) Alkaline Phosphatase 105 U/L (46-116) Total Protein 6.9 g/dL (6.4-8.2) Albumin 3.1 g/dL (3.4-5.0) L Albumin/Globulin Ratio 0.8 (1.0-1.7) L Laboratory Tests 03/09/21 23:05 Laboratory Tests 03/09/21 23:05 Vital Signs: Vital Signs Date Time Temp Pulse Resp B/P (MAP) Pulse Ox O2 Delivery O2 Flow Rate FiO2 03/09/21 23:15 Room Air 03/09/21 22:40 98.8 94 13 134/83 (100) 100 98.8 EKG: EKG: [] Radiology/Procedures: Radiology/Procedures: []PROCEDURE: CT ABD PELV W/ IV CONTRST ONLY PQRS Compliance Statement: One or more of the following individualized dose reduction techniques were utilized for this examination: 1. Automated exposure control 2. Adjustment of the mA and/or kV according to patient size 3. Use of iterative reconstruction technique CT abdomen/pelvis with contrast 03/09/2021 11:22 PM INDICATION: Right groin pain. Inguinal hernia. Recent surgery. COMPARISON: CT abdomen/pelvis 03/03/2021 TECHNIQUE: Multiple axial CT images of the abdomen and pelvis were obtained after the intravenous administration of 75 mL Omnipaque 300. Coronal and sagittal reformats are provided. FINDINGS: Visualized portions of the lung bases are clear. Heart size is within normal limits. No suspicious hepatic masses are identified. Liver is homogeneous in enhancement. Spleen, bilateral adrenal glands, and pancreas are normal in appearance. Gallbladder is present without adjacent inflammatory changes. The abdominal aorta is normal in course and caliber. There are no pathologically enlarged lymph nodes in the abdomen and pelvis. There is no abdominal free fluid. There is no free intraperitoneal air. The kidneys enhance symmetrically. There is no suspicious renal mass. There is no hydronephrosis. There are no suspected calculi within the kidneys, ureters or urinary bladder. Small and large bowel are normal in caliber. There is no evidence for bowel obstruction. There are no pericolonic inflammatory changes. A normal, nondilated appendix is visualized without adjacent inflammatory changes. There is improved appearance of small bowel obstruction. Interval reduction of right inguinal hernia. However, there is fluid and debris identified within the right inguinal canal. There is a gas containing collection proximal to the right inguinal canal measuring 2.6 x 2.9 x 4.1 cm (series 2, image 73). No suspicious osseous abnormality is identified. Urinary bladder is within normal limits given degree of distention. Prostate and seminal vesicles appear normal. IMPRESSION: Post surgical changes are identified from right inguinal hernia repair with interval reduction of hernia and improved small bowel obstruction as compared to prior CT from 03/03/2021. There is an intra-abdominal fluid collection conta ining gas proximal to the inguinal ring within the lower pelvis measuring 2.6 x 2.9 x 4.1 cm. Findings may be postsurgical, although correlation with signs and symptoms of developing abscess is recommended. There is extensive fluid and debris identified at the right inguinal canal extending into the right scrotum. Electronically signed by: Brittany Lehman MD (03/09/2021 11:53 PM) [facility] DICTATED and SIGNED BY: BRITTANY LEHMAN MD DATE: 03/09/21 [id number] 0 Course & Med Decision Making: Course & Med Decision Making Pertinent Labs and Imaging studies reviewed. (See chart for details) This is a 35-year-old male patient presented to the ED today with right groin pain, symptoms began today when he woke up from his nap. Patient had right inguinal hernia repaired by Dr. Stein on last week. Vitals on arrival to the ED temperature 98.8, heart rate 94, respiration 13 on room air, O2 sats 100%, blood pressure 134/83. CBC with a WBC of 11.4, CMP with no acute findings CT of the abdomen and pelvis right inguinal hernia repair with interval reduction of hernia and improved small bowel obstruction as compared to prior CT from 03/03/2021. There is an intra-abdominal fluid collection containing gas proximal to the inguinal ring within the lower pelvis measuring 2.6 x 2.9 x 4.1 cm. Findings may be postsurgical, although correlation with signs and symptoms of developing abscess is recommended. CT results were discussed with Dr. Bartholomew, he was okay with patient being discharged to home. Patient was given pain management in the ED. He has hydrocodone at home Dragon Disclaimer: Dragon Disclaimer: This electronic medical record was generated, in whole or in part, using a voice recognition dictation system. Departure Departure Impression: Primary Impression: Inguinal swelling Disposition: HOME / SELF CARE / HOMELESS Condition: STABLE Referrals: CHRISTIANO KUMAR MD (PCP) follow up in one week Patient Instructions: Hernia Repair, Care After, [id number] Additional Instructions: You were evaluated in the emergency room and noted to have right groin swelling, this appears to be from your surgery. Try and apply ice to the area. Take your pain medicine as needed. Follow-up with Dr. Stein as scheduled LORA PAVON METAL EXPEDITER Mar 10, 2021 00:33
[2021-03-10 01:00] VITALS: BP 145/88
== END 2021-03-10 01:31 | disposition home or self-care (01) ==
LOC: ER 22:34
DX: R19.09 Other intra-abdominal and pelvic swelling, mass and lump (principal); R10.31 Right lower quadrant pain
CPT/HCPCS: 36415; 74177; 80053; 85025; 96374; 96375; 96376; 99285; J1885; J2270; Q9967